=== PATIENT | male | born 1950 | race Caucasian/White ===

== ENCOUNTER 2019-01-22 10:57 | Day surgery (SDC) | payer MEDICARE ==
--- NOTE | 2019-01-22 10:21 | ANESTHESIA ---
Pre-Anesthesia VS, & Labs - Diagnosis L inguinal hernia - Procedure L inguinal hernia repair w/mesh - NPO >8 hours Home Medications and Allergies Home Medications: Ambulatory Orders Lisinopril 5 mg PO DAILY 01/16/19 Lisinopril 5 mg PO DAILY 01/16/19 Allergies/Adverse Reactions: Allergies Allergy/AdvReac Type Severity Reaction Status Date / Time No Known Drug Allergies Allergy Verified 01/16/19 12:01 Anes History & Medical History - Anesthetic History Anesthesia Complications: reports: No previous complications Family history of Anesthesia Complications: Denies Family history of Malignant Hyperthermia: Denies - Medical History Cardiovascular: reports: Hypertension, Murmur Pulmonary: reports: None Gastrointestinal: reports: None Urinary: reports: None Musculoskeletal: reports: None Endocrine/Autoimmune: reports: None Skin: reports: None - Surgical History Orthopedic: Other Exam General: Alert, Oriented x3, Cooperative Dental: WNL Mouth Openin Fingerbreadth Neck Mobility: Normal Mallampati classification: I Thyromental Distance: 4-6 cm Respiratory: Lungs clear, Normal breath sounds Cardiovascular: Regular rate Neurological: Normal speech Mental/Cognitive Status: Alert/Oriented X3, Normal for patient Cognitive Status: Within normal limits Plan Anesthesia Type: General (backup), MAC Consent for Procedure(s) Verified and Reviewed: Yes Code Status: Attempt Resuscitation ASA classification: 2-Mild systemic disease Is this case an emergency?: No
[~2019-01-22 10:57] MED LIST: BUPIVACAINE 0.5%-EPI 1:200000 PF 30 ML VIAL ONE; LIDOCAINE 1% 50 ML MDV ONE; ceFAZolin 1 GM VIAL ONE
[2019-01-22] MEDS ORDERED: CEFAZOLIN SODIUM IN 0.9 % NACL 2 GM/100 ML BAG IV ONE ×2 (11:04→14:00)
[2019-01-22] MEDS ORDERED: LACTATED RINGERS 1,000 ML IV ONE (11:05)
[2019-01-22] MEDS ORDERED: LIDOCAINE-MPF 1% 30 ML VIAL ONE (12:35)
[2019-01-22] MEDS ORDERED: ACETAMINOPHEN 1,000 MG/100 ML 100 ML IV ONE (14:00)
[2019-01-22] MEDS ORDERED: KETOROLAC 30 MG/ML VIAL IVP ONE (14:00)
[2019-01-22] MEDS ORDERED: MIDAZOLAM 2 MG/2 ML VIAL IVP ONE (14:00)
[2019-01-22] MEDS ORDERED: PROPOFOL 200 MG/20 ML VIAL IVP ONE (14:00)
[2019-01-22] MEDS ORDERED: fentaNYL 100 MCG/2 ML VIAL IVP ONE (14:00)
[2019-01-22] MEDS ORDERED: ePHEDrine 50 MG/ML VIAL IVP ONE (14:00)
[2019-01-22] MEDS ORDERED: LIDOCAINE-MPF 2% 5 ML VIAL IM ONE (14:00)
[2019-01-22] MEDS ORDERED: ONDANSETRON 4 MG/2 ML VIAL IVP ONE (14:00)
[2019-01-22] MEDS ORDERED: ACETAMINOPHEN 325 MG TABLET PO PRN (15:01)
[2019-01-22] MEDS ORDERED: oxyCODONE 5 MG TABLET PO PRN (15:01)
[2019-01-22] MEDS ORDERED: IBUPROFEN 600 MG TABLET PO PRN (15:01)
[2019-01-22] MEDS ORDERED: ONDANSETRON 4 MG/2 ML VIAL IVP PRN (15:01)
[2019-01-22 15:58] VITALS: BP 136/86
--- NOTE | 2019-01-22 16:13 | OPERATIVE REPORT ---
DATE OF SERVICE: 01/22/2019 Physician: Jad Little MD PREOPERATIVE DIAGNOSIS: Symptomatic left inguinal hernia. POSTOPERATIVE DIAGNOSIS: Symptomatic sliding indirect left inguinal hernia. PROCEDURE PERFORMED: Open repair of sliding left inguinal hernia with polypropylene mesh. ANESTHESIA: Local/MAC converted to general LMA by Dr. Price. SURGEON: Jad Little MD ESTIMATED BLOOD LOSS: 10 mL COMPLICATIONS: None. FINDINGS: A large scrotal left inguinal hernia was present, indirect and sliding in nature with approximately 15 cm length of sigmoid colon comprising the sliding component. There was no evidence of strangulation, direct or femoral hernias. INDICATIONS: Patient is a 68-year-old gentleman with a 15-year history of progressively enlarging left groin bulge extending into the scrotum. Examination revealed a large reducible scrotal left inguinal hernia. He was advised to undergo repair. TECHNIQUE: After informed consent, the patient was taken to the operating room where he was sedated and monitored initially and then converted to general LMA by Dr. Price. His groin had been clipped in the ASU and surgical site marked. In the OR, his left groin was prepared with iodoform solution, following which a left groin block was instituted using 30 mL of a 50:50 mixture of 1% lidocaine plain and 0.5% Marcaine with epinephrine. His left groin was then re-prepared with ChloraPrep solution and draped in the usual sterile fashion. Preoperative preparation also included application of sequential calf compression boots, administration of 2 grams of cefazolin intravenously within an hour of the incision. An incision was made in the skin lines of the left groin beginning just above the pubic tubercle and extending laterally approximately 6 cm. Hemostasis achieved with electrocautery and 2-0 Vicryl ties. Incision carried down through the subcutaneous tissues until the external oblique aponeurosis was identified and was incised along the lines of its fibers, in such a manner as to open the external ring and expose the internal ring. A search for the ilioinguinal nerve was performed, but was not identified within the inguinal canal. The spermatic cord was markedly dilated, was mobilized and encircled with a Corona drain. It was carefully dissected, isolating a large hernia sac extending into the scrotum. It was dissected free from surrounding cord structures to the level of the internal ring. The hernia sac was opened. Sliding component was identified. The sliding type of repair was performed by incising the peritoneum along the edge of the sliding component, allowing the sliding component to be reduced. Excess hernia sac was then excised and the resulting peritoneal defect reapproximated with continuous 3-0 silk sutures. After hemostasis was assured, the wound was irrigated with antibiotic solution containing 1 gram of Ancef per liter, following which a [employer] precut slotted plug and patch mesh consisting of polypropylene was brought onto the field, soaked in antibiotic solution and the plug was then placed into the dilated internal ring in the preperitoneal position and the edges of the mesh was secured to the fascial edges of the internal ring with interrupted 3-0 Prolene sutures. The patch was then placed over the inguinal floor and secured in place circumferentially with continuous 3-0 Prolene sutures. This was a precut slotted inguinal hernia patch. Care was taken to avoid excessive tightening of the patch around the cord at the level of the internal ring. The patch was secured to the shelving edge of Poupart's ligament inferiorly, to the internal oblique aponeurosis superolaterally and to the lateral border rectus sheath medially. After hemostasis was assured, the wound was then irrigated with antibiotic solution, following which wound closure was accomplished in layers using continuous 2-0 Vicryl to reapproximate the external oblique aponeurosis overlying the cord, followed by 3-0 Vicryl for Barb's fascia and 4-0 Monocryl subcuticular skin closure, followed by Dermabond. Anesthesia was terminated and the patient was transferred to the recovery room in satisfactory condition. Sponge and needle counts were correct x2 and no drains were used. TD: 01/22/2019 15:12 JUDI
== END 2019-01-22 10:58 | disposition home or self-care (01) ==
LOC: SDS 10:57
PROVIDERS: ATTEND Internal Medicine Gastroenterology
PROC: 0YU60JZ Supplement Left Inguinal Region with Synthetic Substitute, Open Approach (ICD-10-PCS; principal; 2019-01-22 12:00)
DX: K40.90 Unilateral inguinal hernia, without obstruction or gangrene, not specified as recurrent (principal); I10 Essential (primary) hypertension; F41.9 Anxiety disorder, unspecified; Z87.891 Personal history of nicotine dependence; H93.19 Tinnitus, unspecified ear
CPT/HCPCS: 49525; A9270; C1781; J0131; J0690; J7120

== ENCOUNTER 2023-10-15 14:01 | Outpatient (CLI) | payer MEDICARE ==
[2023-10-15 14:16] LABS: BASOPHILS # (AUTO) 0.1 10^3/uL (0.0-0.1); BASOPHILS % (AUTO) 1.5 %; EOSINOPHILS # (AUTO) 0.6 10^3/uL (0.0-0.7); EOSINOPHILS % (AUTO) 9.6 %; HCT - HEMATOCRIT 41.7 % (42.0-52.0); HGB - HEMOGLOBIN 13.6 g/dL (14.0-18.0); LYMPHOCYTES # (AUTO) 2.6 10^3/uL (1.5-3.5); LYMPHOCYTES % (AUTO) 39.6 %; MEAN CORPUSCULAR HGB CONC 32.6 g/dL (32.0-36.0); MEAN CORPUSCULAR VOLUME 91.9 fL (80.0-94.0); MEAN PLATELET VOLUME 9.1 fL (7.4-11.4); MONOCYTES # (AUTO) 0.5 10^3/uL (0.0-1.0); MONOCYTES % (AUTO) 7.8 %; NEUTROPHILS # (AUTO) 2.7 10^3/uL (1.5-6.6); NEUTROPHILS % (AUTO) 41.2 %; PLT - PLATELET COUNT 276 10^3/uL (130-450); RED BLOOD COUNT 4.54 10^6/uL (4.70-6.10); RED CELL DISTRIBUTION WIDTH 13.2 % (12.0-15.0); WHITE BLOOD COUNT 6.6 x10^3/uL (4.8-10.8)
[2023-10-15 14:30] LABS: ALBUMIN 4.4 g/dL (3.2-5.5); ALBUMIN/GLOBULIN RATIO 1.8 (1.0-2.2); ALKALINE PHOSPHATASE 59 IU/L (42-121); ALT ALANINE AMINOTRANSFERASE 13 IU/L (10-60); AST ASPARTATE AMINOTRANSFERASE 17 IU/L (10-42); BILIRUBIN,TOTAL 0.5 mg/dL (0.2-1.0); BUN - BLOOD UREA NITROGEN 22 mg/dL (6-20); CALCIUM 10.2 mg/dL (8.5-10.3); CARBON DIOXIDE - CO2 29 mmol/L (21-32); CHLORIDE 105 mmol/L (101-111); CHOL/HDL RATIO 3.8 (<5.0); CHOLESTEROL 205 mg/dL; CREATININE 1.2 mg/dL (0.6-1.3); GFR - MDRD 59 (>89); GLUCOSE 101 mg/dL (74-104); HDL CHOLESTEROL 54 mg/dL; LDL CHOLESTEROL,CALCULATED 129 mg/dL; LDL/HDL RATIO 2.4 (<3.6); POTASSIUM 4.7 mmol/L (3.5-4.5); SODIUM 139 mmol/L (135-145); TOTAL PROTEIN 6.8 g/dL (6.4-8.9); TRIGLYCERIDES 109 mg/dL (48-352); VLDL CHOLESTEROL 22 mg/dL
[2023-10-15 14:45] LABS: THYROID STIMULATING HORMONE 4.07 uIU/mL (0.34-5.60)
== END 2023-10-15 14:02 | disposition home or self-care (01) ==
LOC: LAB 14:01
PROVIDERS: ATTEND Nurse Practitioner Family
DX: I10 Essential (primary) hypertension (principal); R00.2 Palpitations; Z12.5 Encounter for screening for malignant neoplasm of prostate
CPT/HCPCS: 36415; 80053; 80061; 84443; 85025; G0103; 83721; 84153

== ENCOUNTER 2023-10-23 22:14 | Emergency (ER) | payer MEDICARE ==
--- NOTE | 2023-10-23 23:31 | ED Physician Documentation ---
History of Present Illness - Stated complaint Stated Complaint: HIGH BP - Chief complaint Chief Complaint: Cardiac - History obtained from History obtained from: Patient - Additonal information Additional information: HPI from patient. Patient c/o high blood pressures measured at home with his home cuff. He had been noting high blood pressures over the past few weeks and thus saw PCP recently and was prescribed losartan 25mg PO QD. He has been taking this for one week with improvement in his BP readings until past 2 days; he has had 160s-180s SBP readings on BID readings past 2 days. He says he has been under a lot of stress recently and he thinks this might be a reason as to why his BP is so high despite starting the new medication. He denies CP, dysnpea, GALLAGHER, dizziness, numbness, weakness. Had been on lisinopril in the past but stopped (under his PCP's direction) when his BP improved with lifestyle changes and stayed within normal range off of lisinopril. PD PAST MEDICAL HISTORY - Past Medical History Past Medical History: Yes Cardiovascular: Hypertension, Murmur Respiratory: None Endocrine/Autoimmune: None GI: None : None HEENT: Other Psych: Depression Musculoskeletal: None Derm: None - Past Surgical History Past Surgical History: Yes Ortho: Other - Present Medications Home Medications: Ambulatory Orders Medication Instructions Recorded Confirmed Losartan Potassium 25 mg PO DAILY 10/23/23 10/23/23 Amlodipine Besylate/Benazepril 1 each PO DAILY #30 cap 10/24/23 [Amlodipine-Benazepril 5-20 mg] - Allergies Allergies/Adverse Reactions: Allergies Allergy/AdvReac Type Severity Reaction Status Date / Time No Known Drug Allergies Allergy Verified 10/23/23 22:36 - Social History Does the pt smoke?: No Smoking Status: Never smoker Does the pt drink ETOH?: No Does the pt have substance abuse?: No - Immunizations Immunizations are current?: Yes PD ED PE NORMAL - Vitals Vital signs reviewed: Yes - General General: Alert and oriented X 3, No acute distress, Well developed/nourished - Cardiac Cardiac: RRR, No murmur, No gallop, No rub - Respiratory Respiratory: No respiratory distress, Clear bilaterally - Neuro Neuro: Alert and oriented X 3, Normal speech Eye Opening: Spontaneous Motor: Obeys Commands Verbal: Oriented GCS Score: 15 Results - Vitals Vitals: Oxygen O2 Source Room air - EKG (time done) No standard instances EKG releavant findings:: EKG personally interpreted by author of this note. Relevant findings are: Rate: Rate (enter#) (81) Rhythm: NSR Vina: Normal Intervals: Prolonged WA QRS: Normal Ischemia: Normal ST segments, Q waves (V1, V2) PD Medical Decision Making - ED course Complexity details: reviewed results, re-evaluated patient, considered differential, d/w patient ED course: Presents with asymptomatic HTN. No evidence of end-organ damage with unremarkable EKG and recent blood tests (10/15/23) without concerning abnormality from standpoint of end-organ damage (CBC, BMP). However, the blood work from 10/14 does show mild hyperkalemia (4.7) and mildly elevated bun (22) with 1.2 creatinine. While these are mild abnormalities, rather than having him double up his losartan (which puts him at risk for worsening hyperkalemia), or adding a diuretic (which could worsen kidney function tests), I am advising him to stop the losartan and I am prescribing amlodipine/benazapril (5/20) PO QD. This medication is not available in ED and thus given 0.2 mg PO clonidine to reduce BP until he can get the prescription in the morning. Return precautions reviewed and follow up with PCP this week is already arranged for . Departure - Departure Disposition: 01 Home, Self Care Clinical Impression: Hypertension Qualifiers: Hypertension type: unspecified Qualified Code(s): I10 - Essential (primary) hypertension Condition: Good Instructions: ED Hypertension Conf Out Of Control Prescriptions: Amlodipine Besylate/Benazepril [Amlodipine-Benazepril 5-20 mg] 1 each PO DAILY #30 cap Comments: Your blood pressure readings were quite high during your emergency department stay. You were given a 1-time dose of a blood pressure medication (clonidine) in the ER. This is to help temporarily improve your blood pressure overnight until you can fill the prescription in the morning that I have electronically submitted to the [facility] pharmacy in [place]. I recommend that you stop taking the losartan and take the combination blood pressure medication I am prescribing. Reviewing your blood tests that were done last week, I note that your potassium level was slightly above the normal range and your kidney function tests were slightly below normal, as well. The medications that I have switched you to (a combination of 2 different blood pressure medications in one capsule) are less likely to affect your potassium level and your kidney function tests. Follow-up with your primary care provider on as scheduled. Discharge Date/Time: 10/24/23 00:55
[2023-10-24] MEDS: cloNIDine 0.1 MG TABLET PO STA (00:50)
[2023-10-24 01:05] VITALS: BP 188/108; O2SAT 94
== END 2023-10-24 00:55 | disposition home or self-care (01) ==
LOC: ED 22:14
DX: I10 Essential (primary) hypertension (principal)
CPT/HCPCS: 93005; 99283; 99284; A9270; 80048; 85025

== ENCOUNTER 2023-10-27 14:49 | Outpatient (CLI) | payer MEDICARE ==
[2023-10-27 15:33] LABS: FERRITIN 45.1 ng/mL (23.9-336.2)
[2023-10-27 15:34] LABS: % IRON SATURATION 47 % (20-50); IRON 136 ug/dL (50-212); TOTAL IRON BINDING CAPACITY 291 ug/dL (250-450); TRANSFERRIN 208 mg/dL (203-362)
== END 2023-10-27 14:50 | disposition home or self-care (01) ==
LOC: LAB 14:49
PROVIDERS: ATTEND Nurse Practitioner Family
DX: D64.9 Anemia, unspecified (principal)
CPT/HCPCS: 36415; 82607; 82728; 82746; 83540; 84466